=== PATIENT | male | born 1985 | race Caucasian/White ===

== ENCOUNTER 2017-09-24 16:03 | Emergency (ER) | payer MEDICAID ==
[~2017-09-24] VITALS: Ht 182.9 cm; Wt 93.4 kg
[2017-09-24 17:01] VITALS: BP 128/75
--- NOTE | 2017-09-24 17:03 | NUR ---
PT STABLE TO WAIT IN LOBBY ROOM. PT ADVISED TO INFORM STAFF IMMEDIATELY WITH ANY CHANGES IN CONDITION. MEDIACTED WITH TYLENOL FOR FEVER
[2017-09-24] MEDS ORDERED: ACETAMINOPHEN EXTRA STRENGTH 500 MG TAB ONE (17:09)
[2017-09-24 18:35] VITALS: BP 122/77
--- NOTE | 2017-09-24 18:35 | NUR ---
PT STABLE TO CONT TO WAIT IN LOBBY , VSS INFORMED TO NOTIFY STAFF IMMMEDIATELY IF THERE IS ANY CHANGE IN CONDITON.
--- NOTE | 2017-09-24 19:18 | NUR ---
PATIENT LEFT WITHOUT BEING SEEN BY ER HCP. NO FURTHER CARE PROVIDED FOR PATIENT.
== END 2017-09-24 19:18 | disposition left against medical advice (07) ==
LOC: MED 16:03
DX: R07.9 Chest pain, unspecified (principal); Z02.89 Encounter for other administrative examinations
CPT/HCPCS: 99282

== ENCOUNTER 2019-05-30 01:04 | Emergency (ER) | payer MEDICAID, OTHER ==
[~2019-05-30] VITALS: Ht 167.6 cm; Wt 94.3 kg
[2019-05-30 01:10] VITALS: BP 143/96
--- NOTE | 2019-05-30 01:14 | NUR ---
PT AMBULATED TO BED 10.
--- NOTE | 2019-05-30 01:15 | NUR ---
PT 33 Y/O MALE BIB SELF FOR C/O 10/14 THROBBING MOREIRA THAT "COMES AND GOES". PT ALSO HAS C/O SORE THRAOT AND COUGH SINCE TUESDAY. PT DENIES N/V/D. AFEBRILE. RESPIRATIONS ARE EVEN AND UNLABORED. LUNG SOUNDS CLEAR AP. NO COUGH NOTED. PT ABD IS SOFT, ROUND, AND NONTENDER. PT VSS. PT AAO X4. BED LOCKED AND IN LOWEST POSITION. MEDHX: NONE ALLERGIES: NKA
--- NOTE | 2019-05-30 01:28 | NUR ---
IV PLACED IN L AC 20 G. TORADOL 30 MG GIVEN IVP. IVF NS 0.9% GIVEN AND IV SITE PATENT.
[2019-05-30] MEDS ORDERED: NACL 0.9% 1,000 ML IV ONE (01:30)
[2019-05-30] MEDS ORDERED: ACETAMINOPHEN 325 MG TAB PO ONE (01:30)
[2019-05-30] MEDS ORDERED: KETOROLAC 30 MG/ML VIAL IVP ONE (01:30)
--- NOTE | 2019-05-30 02:08 | NUR ---
PT TAKEN TO CT VIA W/C.
--- NOTE | 2019-05-30 02:25 | NUR ---
PT RETURNED FROM CT VIA W/C PT ABLE TO AMBULATE TO BED.
--- NOTE | 2019-05-30 02:49 | NUR ---
PT ADMITS TO PAIN RELIEF. PAIN HAS DECRESED FROM 8/10 MOREIRA TO 2/10.
--- NOTE | 2019-05-30 03:30 | NUR ---
DR. CHANDLER AT BEDSIDE.
--- NOTE | 2019-05-30 03:42 | NUR ---
PT RESPONDS TO VERBAL STIMULI. VSS. RESPIRATIONS ARE EVEN AND UNLABORED.
[2019-05-30 04:12] VITALS: BP 128/82
== END 2019-05-30 04:05 | disposition home or self-care (01) ==
LOC: MED 01:04
DX: R51 Headache (principal); J34.89 Other specified disorders of nose and nasal sinuses; R19.7 Diarrhea, unspecified
CPT/HCPCS: 70450; 96361; 96374; 99284; J1885; J7030